=== PATIENT | male | born 1970 | race Caucasian/White ===

== ENCOUNTER 2021-06-23 10:48 | Emergency (ER) | payer OTHER, SELFPAY ==
[2021-06-23 10:58] VITALS: BP 113/66; PULSE 100; RESP 16; TEMP 36.1; O2SAT 97; BMI 39.0
[2021-06-23] MEDS: Cyclobenzaprine HCl 10 MG TABLET PO (11:28)
[2021-06-23] MEDS: Lidocaine 4 % Patch ADH..PATCH 1 PATCH TRANSDERMA (11:28)
--- NOTE | 2021-06-23 11:32 | ED_ITS ---
HPI - Back Pain/Injury General Chief Complaint: Back Pain/Injury Stated Complaint: lower back pain Time Seen by Provider: 06/23/21 11:06 Source: patient Mode of arrival: ambulatory History of Present Illness HPI Narrative: 50-year-old male with a past medical history of diabetes, hypertension, thyroid disease, presenting to the ED complaining of acute on chronic left-sided low back pain radiating down left lower extremity x years, worsening over the past few weeks. Admits to taking ibuprofen with mild relief. Denies recent injury/trauma or fall. Reports associated paresthesias to LLE. Denies weakness, urinary incontinence, urinary retention, fever, chills MD elicited complaint: back pain Onset (ago): year(s) Related Data Previous Rx's Medication Instructions Recorded acetaminophen 500 mg tablet 500 mg PO Q6H PRN #20 tab 06/23/21 (Tylenol Extra Strength) cyclobenzaprine 5 mg tablet 10 mg PO Q8H PRN 5 Days #14 tab 06/23/21 lidocaine 5 % topical patch 1 patch TOPICAL DAILY PRN #30 ea 06/23/21 (Lidoderm) MDD remove after 12 hours naproxen 500 mg tablet 500 mg PO BID PRN 10 Days #20 tab 06/23/21 Allergies Allergy/AdvReac Type Severity Reaction Status Date / Time No Known Allergies Allergy Verified 06/23/21 11:01 Review of Systems Review of Systems: Constitutional: No Fever, No Chills ENT/Mouth: No Ear Pain, No Nasal Congestion, No sore throat, No Rhinorrhea, No Swallowing Difficulty Cardiovascular: No Chest Pain, No SOB Respiratory: No Cough, No Sputum Gastrointestinal: No Nausea, No Vomiting, No Diarrhea, No Constipation, No Abdominal pain Genitourinary:, No Dysuria, No Urinary Frequency, No Hematuria, No Urinary Incontinence/retention, No Urgency, No Flank Pain Musculoskeletal: + joint pain, No Myalgias, No Joint Swelling Skin: No Skin Lesions, No rash Neuro: No Weakness, No Numbness, No Paresthesias Yes all other systems are reviewed and are negative Neurologic: Denies Sensory deficit (Neuro) PENDING SALE TO [facility] Past Medical History Attestation statement: The following information was validated with the patient. Medical History Diabetes HTN (hypertension) Thyroid disease Social History Social History Advance Directives: No Advance Directives Information Provided: No Physical Exam Vital Signs: Vital Signs: Last Vital Signs Temp 97 F 06/23/21 10:58 Pulse 100 06/23/21 10:58 Resp 16 06/23/21 10:58 BP 113/66 06/23/21 10:58 Pulse Ox 97 06/23/21 10:58 BMI result Body Mass Index 39.0 Const: General: cooperative, healthy appearing and no acute distress Orientation/consciousness: patient oriented x3 Limitations: no limitations HEENT: Head: Yes normal to inspection and Yes atraumatic Ears: hearing grossly normal bilaterally General nose exam: Normal external nose present Face and sinus: Yes normal facial exam Eyes: General: appearance normal, both eyes and all related structures EOM: EOMs intact bilaterally Neck: Other: No midline cervical spinous tenderness Neck: Yes normal visual inspection and Yes no meningeal signs Resp: Effort & Inspection: normal respiratory effort and no respiratory distress Auscultation: clear to auscultation bilaterally Cardio: Rate: regular rate Heart sounds: S1 normal heart sound present and S2 normal heart sound present : General: Yes no CVA tenderness Back/Spine/Pelvis: Other: No midline thoracic/lumbar spinous tenderness/step-off or deformity. Left buttock/left paraspinal tenderness to palpation reproducing subjective complaint. Back: no CVA tenderness Thoracic/Lumbar Spine: thoracic and lumbar spine normal to inspection Skin: Rashes: no rashes Wounds: no wounds Neuro: Other: Strength intact throughout. No saddle anesthesia. General: patient oriented x3, gait normal, tone normal, moves all extremities, no meningeal signs and no focal motor deficits Gait exam (Neuro): Normal gait present Motor exam (neuro): 5/5 motor strength present throughout Sensory Exam: No Sensory deficit (Neuro) Extrem: General: Yes normal to inspection MDM - Back Pain/Injury MDM Narrative Medical decision making narrative: 50-year-old male with a past medical history of diabetes, hypertension, thyroid disease, presenting to the ED complaining of acute on chronic left-sided low back pain radiating down left lower extremity x years, worsening over the past few weeks. On exam vital signs stable, NAD/nontoxic, no midline spinous tenderness throat, no red flag symptoms, no saddle anesthesia, ambulating with steady gait. Concern for MSK back pain/strain for sciatica. Unlikely cord compression, cauda equina or fracture Plan: Symptomatic treatment, [facility] follow-up Differential Diagnosis Differential diagnosis: Likely lumbar radiculopathy, sciatica and strain of lumbar region Medical Records Attestation: I reviewed the patient's medical records. Lab Data Attestation: I reviewed the patient's lab results. Discharge Plan Discharge Clinical Impression: Lumbar radiculopathy Patient Disposition: Home, Self-Care Instructions: Acute Low Back Pain (ED) Additional Instructions: Your pain is likely musculoskeletal Flexeril is a muscle relaxer, take at night as it makes you drowsy, do not drive, drink alcohol, or operate machinery while taking it Naproxen as an anti-inflammatory / pain medication, take with food. Do not take both ibuprofen and naproxen, only take 1 Lidoderm patches are numbing patches, apply to painful area In addition take Tylenol at home If symptoms persist or worsen, pain becomes unbearable, you developed urinary retention or incontinence, or weakness return to the ED [facility] [address] [place] [address] * Tel:? tel:[phone] * Fax:? Prescriptions: New cyclobenzaprine 5 mg tablet 10 mg PO Q8H PRN (Reason: pain (scale score 7-10)) 5 Days Qty: 14 0RF acetaminophen [Tylenol Extra Strength] 500 mg tablet 500 mg PO Q6H PRN (Reason: pain or fever) Qty: 20 0RF lidocaine [Lidoderm] 5 % adhesive patch,medicated 1 patch topical DAILY MDD remove after 12 hours PRN (Reason: pain) Qty: 30 0RF Rx Instructions: leave on most painful area for up to 12 hrs naproxen 500 mg tablet 500 mg PO BID PRN (Reason: pain) 10 Days Qty: 20 0RF Referrals: Juana Carter MD [Physician] - 1 week (as needed)
[2021-06-23 11:43] VITALS: RESP 18
== END 2021-06-23 11:45 | disposition home or self-care (01) ==
PROVIDERS: Emergency Provider Emergency Medicine; PCP Internal Medicine
DX: M54.16 Radiculopathy, lumbar region (principal); E11.9 Type 2 diabetes mellitus without complications; I10 Essential (primary) hypertension
CPT/HCPCS: 99283; 99284

== ENCOUNTER 2021-06-24 13:09 | Emergency (ER) | payer OTHER, SELFPAY ==
--- NOTE | ~2021-06-24 | CT_ITS ---
EXAMINATION: CT LUMBAR SPINE WITHOUT CONTRAST CLINICAL INFORMATION: Lumbar back pain after trauma. COMPARISON: None TECHNIQUE: Noncontrast multidetector CT imaging examination focused on the lumbar spine is performed. Axial images are presented at 1.5 mm and 2 mm slice thickness. The axial images and multiplanar reformatted images are reviewed. This CT examination was performed using dose optimization techniques as appropriate, variously including the following: *Automated exposure control *Adjustment of mA and/or kV according to patient size (this includes techniques or standardized protocols for targeted exams where dose is matched to indication/reason for exam; i.e. extremities or head) *Use of iterative reconstruction technique DLP; 848 mGy-cm FINDINGS: LUMBOSACRAL SPINE: No acute imaging findings in the lumbar spine. The vertebral body heights are maintained. No acute compression fracture. No significant findings at T12-L1, L1-L2, L2-L3 or L3-L4. No significant narrowing of the spinal canal or neural foramina at these levels. At L4-L5, there is mild narrowing of the disc space, vacuum disc phenomenon, old bilateral pars interarticularis defects, facet osteoarthritis and 0.6 cm of grade 1 anterolisthesis of L4 on L5. There is unroofing of the degenerated L4-L5 disc which mildly compresses the ventral surface of the thecal sac and encroaches upon neural foramina, impinging upon the undersurface of the exiting right and left L4 nerve roots. At L5-S1, there is moderate degenerative loss of the disc height, vacuum disc phenomenon, endplate sclerosis, osteophytosis and disc bulge. There appears to be superimposed old central/left paracentral disc herniation that approaches but does not overtly impinge upon the traversing left S1 nerve root. The disc osteophyte complex at L5-S1 causes severe right and moderate left neural foraminal stenosis. OTHER: Abdominal aorta is normal in caliber. No para-aortic lymphadenopathy or retroperitoneal mass within the examined [id number]. The visualized portions of the kidneys are normal. No evidence of nephrolithiasis or hydronephrosis. CT/CT lumbar spine wo con IMPRESSION: * No acute fracture or acute traumatic subluxation in the degenerated lumbar spine. * Chronic L4 spondylolysis with grade 1 anterolisthesis of L4 on L5 and unroofing of the L4-S1 disc which encroaches upon the right and left neural foramina and appears to impinge upon the exiting L4 nerve roots. * Degenerative disc disease at L5-S1. There appears to be an old central/left paracentral disc herniation superimposed on chronic disc bulge at this level. The disc osteophyte complex at L5-S1 causes severe right and moderate left neural foraminal stenosis.
[2021-06-24 13:36] VITALS: BP 132/74; PULSE 86; RESP 18; TEMP 36.6; O2SAT 97; BMI 39.4
--- NOTE | 2021-06-24 14:24 | ED.BACK ---
HPI - Back Pain/Injury General Chief Complaint: Back Pain/Injury Stated Complaint: back pain Time Seen by Provider: 06/24/21 14:23 Source: patient Mode of arrival: ambulatory Limitations: no limitations History of Present Illness HPI Narrative: 50-year-old male with a past medical history of diabetes, hypertension, thyroid disease, presenting to the ED complaining of acute on chronic left-sided low back pain radiating down left lower extremity x years, worsening over the past few weeks.? Denies recent injury/trauma or fall.? Denies weakness, urinary incontinence, urinary retention, fever, chills Patient was seen here yesterday, prescribed Flexeril, naproxen, Tylenol, lidocaine patches. Patient states the pain is worse, it is hard to bear weight, numbness and tingling left lower extremity, the only thing that relieves pain is sitting and not moving Related Data Previous Rx's Medication Instructions Recorded acetaminophen 500 mg tablet 500 mg PO Q6H PRN #20 tab 06/23/21 (Tylenol Extra Strength) cyclobenzaprine 5 mg tablet 10 mg PO Q8H PRN 5 Days #14 tab 06/23/21 lidocaine 5 % topical patch 1 patch TOPICAL DAILY PRN #30 ea 06/23/21 (Lidoderm) MDD remove after 12 hours naproxen 500 mg tablet 500 mg PO BID PRN 10 Days #20 tab 06/23/21 oxycodone 5 mg capsule 5 mg PO Q8H PRN 3 Days #9 cap 06/24/21 prednisone 20 mg tablet 60 mg PO DAILY 5 Days #15 tab 06/24/21 Allergies Allergy/AdvReac Type Severity Reaction Status Date / Time No Known Allergies Allergy Verified 06/23/21 11:01 Review of Systems Constitutional: Constitutional: Denies body ache(s), Denies chills, Denies fatigue, Denies fever(s), Denies headache(s), Denies malaise and Denies weakness Eyes: Eyes: Denies diplopia ENT: Denies vertigo, Denies dizziness, Denies headache(s) and Denies throat swelling Cardiovascular: Cardiovascular: Denies chest pain, Denies syncope, Denies leg edema, Denies lightheadedness, Denies Loss of Consciousness, Denies palpitations and Denies dyspnea Respiratory: Respiratory: Denies chest congestion, Denies cough and Denies dyspnea Gastrointestinal: Gastrointestinal: Denies abdominal pain, Denies hematochezia, Denies constipation, Denies diarrhea and Denies vomiting Musculoskeletal: Musculoskeletal: Reports back pain, Reports numbness and Reports radiating pain into limb Neurologic: Denies confusion, Denies vertigo, Denies dizziness, Denies syncope, Denies headache(s), Reports numbness and Denies weakness Psychiatric: Psychiatric: Denies anxiety, Denies confusion and Denies depression Endocrine: Endocrine: Denies fatigue and Denies palpitations Allergic/Immunologic: Allergic/Immunologic: Denies throat swelling PMFSH Past Medical History Medical History Diabetes HTN (hypertension) Thyroid disease Social History Social History Advance Directives: No Advance Directives Information Provided: No Physical Exam Vital Signs: Vital Signs: Last Vital Signs Temp 97.8 F 06/24/21 13:36 Pulse 86 06/24/21 13:36 Resp 18 06/24/21 13:36 BP 132/74 06/24/21 13:36 Pulse Ox 97 06/24/21 13:36 BMI result Body Mass Index 39.4 Const: General: No confusion Nutritional Appearance: well nourished Orientation/consciousness: No confusion Limitations: no limitations Eyes: Conjunctivae: conjunctivae normal Pupils: Equal, round and reactive pupils present EOM: EOMs intact bilaterally Neck: Neck: Yes full ROM, Yes no lymphadenopathy and Yes supple Resp: Effort & Inspection: normal respiratory effort and able to speak in complete sentences Auscultation: clear to auscultation bilaterally, no crackles, no rales, no rhonchi and no wheezes Cardio: Rate: regular rate Rhythm: regular rhythm Heart sounds: S1 normal heart sound present and S2 normal heart sound present GI: Inspection: Yes normal to inspection Palpation (GI): Soft to palpation, nontender, no guarding and not rigid Percussion: Yes normal to percussion Auscultation: normal bowel sounds : General: Yes no CVA tenderness Back/Spine/Pelvis: Back: no CVA tenderness Cervical Spine: normal cervical lordosis, cervical ROM normal, No Cervical spine tenderness, No step off deformity and No cervical ROM abnormal Thoracic/Lumbar Spine: thoraco-lumbar ROM limited, thoraco-lumbar spasm on the left greater than right, No thoracic spinal tenderness and lumbar spinal tenderness at L4 Pelvis: buttock tenderness on the left Skin: General skin exam: no rashes or lesions noted Neuro: General: No confusion Cranial nerves: Yes Equal, round and reactive pupils present Extrem: Left lower extremity: normal to inspection, full ROM and normal capillary refill; No no cyanosis and no edema Psych: Appearance: grossly normal Affect: normal affect Attitude: cooperative Thought process: Normal thought process present Course Course Course Narrative: 50-year-old male with a past medical history of diabetes, hypertension, thyroid disease, presenting to the ED for second time in 2 days for acute on chronic left-sided low back pain radiating down left lower extremity x years, worsening over the past few weeks.? On exam vital signs stable, NAD/nontoxic, midline spinous tenderness in lumbar region, no red flag symptoms, no saddle anesthesia, ambulating with steady gait.? Reevaluation(s) Reevaluation #1: CT/CT lumbar spine wo con IMPRESSION: *? No acute fracture or acute traumatic subluxation in the degenerated lumbar spine.? *? 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 *? Degenerative disc disease at L5-S1. There appears to be an old central/left paracentral disc herniation superimposed on chronic disc bulge at this level. The disc osteophyte complex at L5-S1 causes severe right and moderate left neural foraminal stenosis. Discussed patient's CT results in great detail with patient. Counseled importance of spine referral, and counseled patient to talk to his PCP for physical therapy referral. Gave return precautions of fevers, saddle paresthesias, incontinence. Will treat pain with prednisone short course of oxycodone. Patient verbalized agreement understanding of plan. Discharge Plan Discharge Clinical Impression: Disc disorder of lumbar region, Spondylolysis of lumbar region, Anterolisthesis of lumbar spine Patient Disposition: Home, Self-Care Additional Instructions: Please call [facility] at [phone] for follow-up appointment Please call your primary care provider, they will be able to prescribe physical therapy for your back. Please take prednisone for pain, I prescribed you also short course of oxycodone. Know that the prednisone will make your sugars rise and this is to be expected. Please return to the emergency room if you have leg weakness, if your incontinent of bowel or bladder, if you have tingling in your groin. Prescriptions: New prednisone 20 mg tablet 60 mg PO DAILY 5 Days Qty: 15 0RF Rx Instructions: Start prednisone June 25 oxycodone 5 mg capsule 5 mg PO Q8H PRN (Reason: pain) 3 Days Qty: 9 0RF No Action cyclobenzaprine 5 mg tablet 10 mg PO Q8H PRN (Reason: pain (scale score 7-10)) 5 Days Qty: 14 0RF acetaminophen [Tylenol Extra Strength] 500 mg tablet 500 mg PO Q6H PRN (Reason: pain or fever) Qty: 20 0RF lidocaine [Lidoderm] 5 % adhesive patch,medicated 1 patch topical DAILY MDD remove after 12 hours PRN (Reason: pain) Qty: 30 0RF Rx Instructions: leave on most painful area for up to 12 hrs naproxen 500 mg tablet 500 mg PO BID PRN (Reason: pain) 10 Days Qty: 20 0RF Referrals: [facility] [Outside] Stand Alone Forms: Work/School Release Interventions: ED Discharge Assessment Last Done: 06/24/21 17:20 Discharge Date/Time: 06/24/21 17:22
[2021-06-24] MEDS: predniSONE 20 MG TABLET 60 MG PO (15:01)
[2021-06-24] MEDS: Ketorolac Tromethamine 30 MG/ML VIAL IM (15:02)
[2021-06-24] MEDS: oxyCODONE HCl Immed Release 5 MG TABLET PO (15:02)
== END 2021-06-24 17:22 | disposition home or self-care (01) ==
PROVIDERS: Emergency Provider Emergency Medicine; PCP Internal Medicine
DX: M47.816 Spondylosis without myelopathy or radiculopathy, lumbar region (principal); M43.16 Spondylolisthesis, lumbar region; M51.9 Unspecified thoracic, thoracolumbar and lumbosacral intervertebral disc disorder; I10 Essential (primary) hypertension; E11.9 Type 2 diabetes mellitus without complications
CPT/HCPCS: 72131; 96372; 99283; 99284; J1885